=== PATIENT | female | born 1995 | race Caucasian/White ===

== ENCOUNTER 2017-10-02 08:16 | Day surgery (SDC) | payer OTHER, MEDICAID ==
[2015-05-19 12:13] VITALS: BMI 18.7
[2017-10-02 08:50] VITALS: O2SAT 100
[2017-10-02] MEDS ORDERED: Methylene Blue 10 mg/mL(10ml) IV ONE (10:32)
[2017-10-02] MEDS ORDERED: Propofol 10 mg/ml Inj (20 ML) ONE (10:45)
[2017-10-02] MEDS ORDERED: Lactated Ringer's 1,000 ML IV ONE (10:47)
[2017-10-02 12:13] VITALS: PULSE 57
[2017-10-02 12:28] VITALS: TEMP 97.2
[2017-10-02 12:57] VITALS: BP 104/60; RESP 12
== END 2017-10-02 12:40 | disposition home or self-care (01) ==
LOC: C.ENDO 08:16
PROVIDERS: ATTEND Internal Medicine Gastroenterology
DX: K52.89 Other specified noninfective gastroenteritis and colitis (principal); K64.8 Other hemorrhoids
CPT/HCPCS: 45380; 84703; 88305; J2001; J2704; J7120